=== PATIENT | female | born 1955 | race Caucasian/White ===

== ENCOUNTER 2021-05-19 11:42 | Emergency (ER) | payer MEDICARE ==
[~2021-05-19] VITALS: Ht 160 cm; Wt 63.6 kg
[2021-05-19] MEDS ORDERED: LORA10TA7 PO (11:53)
[2021-05-19] MEDS ORDERED: LOSA25TA21 PO (11:53)
[2021-05-19] MEDS ORDERED: DiphenhydrAMINE HCL 50 MG/ML VIAL IVP ONE (13:00)
[2021-05-19] MEDS ORDERED: FAMOTIDINE 10 MG/ML 2 ML VIAL IVP ONE (13:00)
[2021-05-19] MEDS ORDERED: PredniSONE 20 MG TABLET PO ONE (13:00)
[2021-05-19 14:40] VITALS: BP 168/97
== END 2021-05-19 15:22 | disposition home or self-care (01) ==
LOC: EMS 11:47
DX: T78.40XA Allergy, unspecified, initial encounter (principal); X58.XXXA Exposure to other specified factors, initial encounter
CPT/HCPCS: 96374; 96375; 99284; J1200; J3490; J7512